=== PATIENT | male | born 1950 | race Caucasian/White ===

== ENCOUNTER 2017-02-25 22:46 | Inpatient (IN) | payer MEDICARE ==
[~2017-02-25] VITALS: Ht 180.3 cm; Wt 139.1 kg
[2017-02-25 23:29] LABS: HEMATOCRIT 37.5 % (39.2-51.8); HEMOGLOBIN 12.7 g/dL (13.7-18.0)
[2017-02-25] MEDS ORDERED: ONDANSETRON 2MG/ML, 2ML ONE (23:29)
[2017-02-25] MEDS ORDERED: ONDANSETRON 2MG/ML, 2ML IVPush ONE (23:30)
[2017-02-25] MEDS ORDERED: SODIUM CHLORIDE 0.9% 1,000ML IVBOLUS ONE (23:30)
[2017-02-25] MEDS ORDERED: MORPHINE SULFATE 4 MG/ML, 1ML IVPush PRN (23:30)
[2017-02-25] MEDS ORDERED: PLEASE ENTER ALLERGIES MC SCH ×2 (23:30)
[2017-02-25] MEDS ORDERED: SODIUM CHLORIDE FLUSH 10ML SYR IVF ONE (23:30)
[2017-02-25 23:41] LABS: BLOOD UREA NITROGEN 26 mg/dL (7-18)
[2017-02-25 23:46] LABS: ASPARTATE AMINO TRANSFERASE 14 U/L (15-37)
[2017-02-26] MEDS ORDERED: POTASSIUM CHLORIDE 20 MEQ in D5%-0.45% NACL 1,000 ML IV ONE (01:19)
[2017-02-26] MEDS ORDERED: MORPHINE SULFATE 4 MG/ML, 1ML ONE (01:19)
[2017-02-26] MEDS ORDERED: CEFOTETAN PMX 2GM/50ML 50 ML IV ONE (01:30)
[2017-02-26] MEDS ORDERED: ONDANSETRON 2MG/ML, 2ML IVPush PRN ×2 (01:30→08:30)
[2017-02-26] MEDS ORDERED: SODIUM CHLORIDE FLUSH 10ML SYR IVF PRN (01:30)
[2017-02-26] MEDS ORDERED: D5%-0.45NACL+KCL 20MEQ 1,000 ML IV SCH (01:30)
[2017-02-26 02:13] VITALS: BP 100/59
[2017-02-26] MEDS ORDERED: Folic Acid (03:30)
[2017-02-26] MEDS ORDERED: WARF10TA6 PO (03:30)
[2017-02-26] MEDS ORDERED: Benicar (03:30)
[2017-02-26] MEDS ORDERED: Warfarin (03:30)
[2017-02-26] MEDS ORDERED: VIT D PO (03:30)
[2017-02-26 03:32] VITALS: BP 100/59
[2017-02-26] MEDS ORDERED: EPINEPHRINE 1 MG/ML, 1ML ONE (06:36)
[2017-02-26] MEDS ORDERED: BUPIVACAINE/PF 0.5% ONE (06:36)
[2017-02-26 06:50] VITALS: BP 116/74
[2017-02-26] MEDS ORDERED: PROPOFOL 10 MG/ML, 20ML ONE (07:37)
[2017-02-26] MEDS ORDERED: KETAMINE 10 MG/ML, 20ML ONE ×2 (07:37→07:46)
[2017-02-26] MEDS ORDERED: SUCCINYLCHOLINE 20 MG/ML, 10ML ONE (07:37)
[2017-02-26] MEDS ORDERED: KETOROLAC 30 MG/1 ML ONE (07:37)
[2017-02-26] MEDS ORDERED: DEXAMETHASONE 4 MG/ML, 1ML ONE (07:37)
[2017-02-26] MEDS ORDERED: CEFOTETAN 2 GM ONE (07:37)
[2017-02-26] MEDS ORDERED: ONDANSETRON 2MG/ML, 2ML ONE (07:37)
[2017-02-26] MEDS ORDERED: FENTANYL PF 100 MCG/2ML ONE (07:46)
[2017-02-26] MEDS ORDERED: HYDROmorphone 1 MG/ML, 1ML ONE (07:46)
[2017-02-26] MEDS ORDERED: MIDAZOLAM 1 MG/ML, 2ML ONE (07:46)
[2017-02-26] MEDS ORDERED: LACTATED RINGERS 1,000 ML IV SCH (08:22)
[2017-02-26] MEDS ORDERED: LORazepam 2 MG/ML, 1ML IV PRN (08:30)
[2017-02-26] MEDS ORDERED: HYDROmorphone 1 MG/ML, 1ML IV PRN (08:30)
[2017-02-26] MEDS ORDERED: OXYcodone/APAP 5/325MG TABLET PO PRN (08:30)
[2017-02-26] MEDS ORDERED: OXYcodone 5 MG/5 ML ORAL.SOL UDC ONE (08:42)
[2017-02-26] MEDS ORDERED: ACETAMINOPHEN 650 MG/20.3 ML UDC ONE (08:42)
[2017-02-26 15:41] VITALS: BP 137/90
[2017-02-26] MEDS: CEFOTETAN PMX 2GM/50ML 50 ML IVPB SCH (15:43)
[2017-02-26 19:19] VITALS: BP 119/71
[2017-02-27 00:04] VITALS: BP 114/69
[2017-02-27] MEDS: CEFOTETAN PMX 2GM/50ML 50 ML IVPB SCH (02:48)
[2017-02-27 04:38] VITALS: BP 111/72
[2017-02-27 05:13] LABS: HEMATOCRIT 34.5 % (39.2-51.8); HEMOGLOBIN 11.7 g/dL (13.7-18.0); WHITE BLOOD COUNT 8.1 x10^3/uL (3.4-10)
[2017-02-27 08:01] VITALS: BP 132/85
[2017-02-27] MEDS ORDERED: OXYC5CAP2 PO (11:38)
== END 2017-02-27 11:56 | disposition home or self-care (01) | DRG 853 ==
LOC: ED 23:59 → 4NOR 02-26 02:04 → ED 02-26 04:31 → DCLOUNGE 02-27 11:20
PROVIDERS: ADMIT Surgery; ATTEND Surgery
PROC: 0DTJ4ZZ Resection of Appendix, Percutaneous Endoscopic Approach (ICD-10-PCS; principal; 2017-02-26 07:30)
DX: A41.9 Sepsis, unspecified organism (principal); N17.0 Acute kidney failure with tubular necrosis; K35.80 Unspecified acute appendicitis; Z68.41 Body mass index [BMI] 40.0-44.9, adult; I10 Essential (primary) hypertension; E66.01 Morbid (severe) obesity due to excess calories; E86.0 Dehydration; Z79.01 Long term (current) use of anticoagulants; Z86.711 Personal history of pulmonary embolism
CPT/HCPCS: 36415; 74176; 80053; 81003; 83690; 85025; 85610; 85730; 88304; 93005; 96374; 96375; J0171; J1100; J1170; J1885; J2250; J2405; J2704; J3010; J3480; J3490; J0330; J7030; J7120; S0074